=== PATIENT | male | born 2000 | race African-American/Black ===

== ENCOUNTER 2021-12-20 08:23 | Emergency (ER) | payer OTHER, MEDICAID ==
[~2021-12-20] VITALS: Ht 177.8 cm; Wt 70.0 kg
[2021-12-20 08:25] VITALS: BP 113/50
[2021-12-20] MEDS ORDERED: BACITRACIN ZINC OINT UDPKT TOP ONE (08:45)
[2021-12-20] MEDS ORDERED: LIDOCAINE HCL/PF 1% 10 MG/ML 5ML VIAL INFIL ONE (08:45)
[2021-12-20] MEDS ORDERED: TETANUS, DIPHTHERIA, PERTUSSIS VAC/PF 0.5ML (>10YR OLD) IM ONE (08:45)
== END 2021-12-20 10:26 | disposition home or self-care (01) ==
LOC: ER 08:23
DX: S61.210A Laceration without foreign body of right index finger without damage to nail, initial encounter (principal); S61.212A Laceration without foreign body of right middle finger without damage to nail, initial encounter; S61.211A Laceration without foreign body of left index finger without damage to nail, initial encounter; W22.8XXA Striking against or struck by other objects, initial encounter; Y93.89 Activity, other specified; Y92.89 Other specified places as the place of occurrence of the external cause; F11.10 Opioid abuse, uncomplicated; F12.10 Cannabis abuse, uncomplicated
CPT/HCPCS: 12001; 99283; J3490; Z7610; 90715